=== PATIENT | female | born 1975 | race American Indian/Alaskan Native ===

== ENCOUNTER 2020-08-19 15:28 | Outpatient (CLI) | payer BC | END 2020-08-19 21:36 | disposition home or self-care (01) | LOC: MAMMO 15:28 | PROVIDERS: ATTEND Registered Nurse | DX: Z12.31 Encounter for screening mammogram for malignant neoplasm of breast (principal) ==

== ENCOUNTER 2022-07-02 08:47 | Outpatient (CLI) | payer BC | END 2022-07-02 19:22 | disposition home or self-care (01) | LOC: MAMMO 08:47 | PROVIDERS: ATTEND Registered Nurse | DX: Z12.31 Encounter for screening mammogram for malignant neoplasm of breast (principal) ==